=== PATIENT | female | born 1940 | race Hispanic/Latino ===

== ENCOUNTER 2018-04-08 08:10 | Outpatient (CLI) | payer MEDICARE ==
--- NOTE | 2018-04-08 11:10 | CT ---
CT LUMBAR SPINE WITHOUT CONTRAST: HISTORY: Chronic kidney disease and low back pain. COMPARISON: None. FINDINGS: There is moderate atherosclerotic plaque of the aorta. No aneurysmal dilatation. No nephrolithiasis is appreciated. No free fluid in the abdomen. Incidental note is made of a small splenule. Levels are as follows: L1-L2: There is a circumferential disk osteophyte complex. Mild bilateral neural foraminal narrowing . The spinal canal appears to be narrowed to approximately 7 mm. Mild facet arthropathy. L2-L3: Circumferential disk bulge. Mild ligamentum flavum hypertrophy. Moderate facet arthrosis. The spinal canal measures approximately 8 mm. Mild bilateral neural foraminal narrowing. L3-L4: Circumferential disk bulge. Moderate facet arthropathy. There is moderate to severe bilater al neural foraminal narrowing with abutment of both exiting nerve roots. The spinal canal measures a pproximately 7 mm. L4-L5: There is a large circumferential disk bulge. There is disk desiccation. Bilateral subforami nal and posterior disk osteophyte complexes. Severe bilateral neural foraminal narrowing with abutme nt of the exiting and traversing nerve roots. Moderate facet arthropathy. 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 There is anterolisthesis of a centi meter. There is severe bilateral neural foraminal narrowing. There is abutment of the exiting and t raversing nerve roots bilaterally. IMPRESSION: 1. Moderate to severe spondylosis, as described, worse at L4-L5 and L5-S1. 2. There is 1 cm L5 over S1 anterolisthesis with severe neural foraminal narrowing due to bilateral pars interarticularis defects. POS: [facility]
== END 2018-04-08 08:11 | disposition home or self-care (01) ==
LOC: NAV CT 08:10
PROVIDERS: ATTEND Internal Medicine Nephrology
DX: N18.2 Chronic kidney disease, stage 2 (mild) (principal); M47.817 Spondylosis without myelopathy or radiculopathy, lumbosacral region; M47.816 Spondylosis without myelopathy or radiculopathy, lumbar region; M43.17 Spondylolisthesis, lumbosacral region; M48.07 Spinal stenosis, lumbosacral region
CPT/HCPCS: 72131

== ENCOUNTER 2024-03-09 11:48 | Emergency (ER) | payer MEDICARE, OTHER ==
[2024-03-09] MEDS ORDERED: Bacitracin 1 PK ONE (12:04)
[2024-03-09] MEDS ORDERED: Amoxicillin/Potassium Clav 875 MG TAB ONE (12:16)
[2024-03-09] MEDS ORDERED: Clindamycin 150 MG CAP ONE (12:16)
[2024-03-09] MEDS ORDERED: Lidocaine 1% (PF) 30 ML VIAL ONE (12:59)
== END 2024-03-09 13:45 | disposition home or self-care (01) ==
LOC: NAV ERS 11:48
DX: L03.012 Cellulitis of left finger (principal); L02.512 Cutaneous abscess of left hand; E11.9 Type 2 diabetes mellitus without complications; E78.5 Hyperlipidemia, unspecified; I10 Essential (primary) hypertension; Z75.8 Other problems related to medical facilities and other health care; X12.XXXA Contact with other hot fluids, initial encounter
CPT/HCPCS: 10060; 87070; 87077; 87205